=== PATIENT | male | born 1945 | race Caucasian/White ===

== ENCOUNTER → 2016-09-28 | Outpatient (CLI) | payer MEDICARE, OTHER | END | disposition home or self-care (01) | LOC: GMAL 11:48 | PROVIDERS: ATTEND Family Medicine | DX: Z12.5 Encounter for screening for malignant neoplasm of prostate (principal) ==

== ENCOUNTER → 2017-06-07 | Outpatient (CLI) | payer MEDICARE, OTHER ==
--- NOTE | 2017-06-08 08:09 | MRI ---
EXAM DESCRIPTION: MRI right knee CLINICAL HISTORY: Right knee pain COMPARISON: None. TECHNIQUE: Multiplanar, multisequence MR images of the right knee FINDINGS: Complex tear posterior horn and body medial meniscus. Horizontal cleavage tear posterior horn with blunting and fraying of the free edge. Subluxation of the body with complex tear involving both superior and inferior articular surfaces. Loss of meniscal substance and subluxation of the meniscus into the superior medial gutter. Severe medial femorotibial osteoarthritis. Full-thickness chondral loss over the anterior two thirds of the tibia with subchondral cortical irregularity and edema. Full-thickness chondral loss over the entire weightbearing femoral condyle with subchondral cortical irregularity and edema. Full-thickness chondral loss also involves a portion of the posterior nonweightbearing medial femoral condyle No lateral meniscal tear. No high-grade lateral femorotibial chondrosis or focal osteochondral lesion Trochlear chondrosis with chondral thinning and fissuring over the apex of the trochlea over about 2 x 1.4 cm. ACL, PCL, MCL and fibular collateral ligaments are intact Biceps femoris, popliteus and iliotibial band tendons are normal. Patellar and quadriceps tendons are intact. Tendons of the posterior medial knee are normal Motor joint effusion with degenerative synovitis. Large ossified body in the popliteal tendon sheath measures about 1.9 cm in greatest dimension. There is an adjacent smaller body in the popliteal tendon sheath about 0.8 cm IMPRESSION: Complex tear posterior horn and body medial meniscus Severe medial femorotibial chondrosis/osteoarthritis Electronically signed by: Charles Carson MD 06/08/2017 8:08 AM CDT
--- NOTE | 2017-06-08 08:29 | MRI ---
EXAM DESCRIPTION: MRI left knee CLINICAL HISTORY: Left knee pain COMPARISON: None. TECHNIQUE: Multiplanar, multisequence MR images of the left knee FINDINGS: Complex tear posterior horn and body medial meniscus. Intrameniscal signal throughout the posterior horn with fraying of the superior and inferior articular surfaces extending up to the tibial root. Diffuse intrameniscal signal throughout the posterior horn. Tear of the body of the meniscus involving both superior and inferior articular surfaces with subluxation into the superior medial gutter. Blunting and fraying of the meniscus. Medial femorotibial grade 4 chondrosis over the anterior half of the tibia with underlying small subchondral cysts and marrow edema joint line osteophyte. Chondral thinning and surface irregularity diffusely over the weightbearing femoral condyle, primarily grade 2 chondrosis. Grade 4 chondrosis along the posterior condyle overlying the posterior horn meniscus and the posterior nonweightbearing weightbearing condyle over about 2 x 2.5 cm with subchondral cortical irregularity, minimal cystic change and edema No lateral meniscal tear. Small region of grade 3 chondrosis over the posterior lateral tibia. No full-thickness chondrosis or subchondral marrow abnormality Mild femoral trochlear and medial trochlea chondrosis without subchondral marrow abnormality ACL, PCL, MCL and fibular collateral ligaments are intact Biceps femoris, popliteus iliotibial band tendons are normal. Patellar and quadriceps tendons and tendons of the posterior medial knee are intact. Mild central proximal patellar tendinosis Moderate suprapatellar joint effusion with synovitis. Complex multiloculated ganglion posterior medial knee subjacent to the semimembranosus tendon measuring about 4.2 x 2.9 x 1.5 cm. IMPRESSION: Complex tear of the posterior horn and body medial meniscus. Macerated body of the meniscus with subluxation of the superior medial gutter Severe medial femorotibial chondrosis. Mild apex and medial trochlear chondrosis Electronically signed by: Charles Carson MD 06/08/2017 8:28 AM CDT
== END | disposition home or self-care (01) ==
LOC: MRI 10:32
PROVIDERS: ATTEND Family Medicine
DX: M23.221 Derangement of posterior horn of medial meniscus due to old tear or injury, right knee (principal)

== ENCOUNTER → 2017-10-17 | Outpatient (CLI) | payer MEDICARE, OTHER | LOC: GMAL 11:13 | PROVIDERS: ATTEND Family Medicine | DX: D51.3 Other dietary vitamin B12 deficiency anemia (principal); E55.9 Vitamin D deficiency, unspecified; R53.83 Other fatigue; Z12.5 Encounter for screening for malignant neoplasm of prostate | CPT/HCPCS: 82306; 82607; 84443; G0103 ==

== ENCOUNTER → 2018-10-21 | Outpatient (CLI) | payer MEDICARE, OTHER | LOC: GMAL 11:01 | PROVIDERS: ATTEND Family Medicine | DX: D51.3 Other dietary vitamin B12 deficiency anemia (principal); R53.83 Other fatigue; E55.9 Vitamin D deficiency, unspecified; Z12.5 Encounter for screening for malignant neoplasm of prostate | CPT/HCPCS: 82306; 82607; 84443; G0103 ==

== ENCOUNTER → 2020-09-03 | Outpatient (CLI) | payer MEDICARE, OTHER ==
--- NOTE | 2020-09-05 11:26 | CT ---
EXAM DESCRIPTION: Soft Tissue Neck w/wo Contrast CLINICAL HISTORY: LOC SWELLING,MASS AND LUMP, UNSP COMPARISON: None. TECHNIQUE: Pre and postcontrast CT images of the neck are obtained with coronal and sagittal reconstructed images. This exam was performed according to our departmental dose-optimization program, which includes automated exposure control, adjustment of the mA and/or kV according to patient size and/or use of iterative reconstruction technique . FINDINGS: Visualized intracranial structures show severe calcifications of the intracranial carotid arteries. Visualized paranasal sinuses and mastoid air cells are unremarkable. The bilateral parotid glands are unremarkable. 2 enhancing soft tissue attenuation masses in the left submandibular region measure 2.6 x 3.0 cm and 2.6 x 4.1 cm. These lymph nodes or nodules show areas of increased attenuation on noncontrast imaging Mass effect on the left submandibular gland. Several less than 1 cm right greater than left submandibular and cervical chain lymph nodes are seen. Moderate streak artifact from patient's dental work obscures visualization of the oral pharynx and portions of the posterior pharynx. Asymmetric enlargement of the left adenoid tonsil measuring at least 2.1 x 1.7 cm compared to the right measuring 1.6 x 1.7 cm. The right tonsil contains multiple calcified concretions. Floor the mouth is unremarkable. The epiglottis and vocal cords are unremarkable. 6 mm focus of decreased attenuation in the left thyroid. No further imaging follow-up is recommended based on size of nodule and patient age. Visualized lung apices show mild centrilobular emphysematous changes. Moderate to severe disc space narrowing and degenerative changes from C4 through T1 is seen contributing to mild to moderate spinal canal stenosis and foraminal encroachment most significant at C5-6. Facet arthropathy is most significant on the left from C2 through C4. Severe calcified plaque of the carotid bulb to left greater than right internal carotid arteries. IMPRESSION: Enlarged soft tissue nodules in the left submandibular region showing mild calcifications and enhancement could represent pathologically enlarged lymph nodes. Recommend tissue sampling. Asymmetric enlargement of the left adenoid tonsil combine with enlarged left submandibular lymph nodes raises suspicion for neoplastic process. Borderline enlarged submandibular and cervical chain lymph nodes bilaterally could be reactive. Severe carotid artery disease left greater than right with findings that are suspicious for high-grade stenosis. Consider further evaluation with carotid ultrasound. Spondylitic changes of the spine are seen. Electronically signed by: Josh Hernandez MD 09/05/2020 11:25 AM [facility]
== END ==
LOC: CT 10:41
PROVIDERS: ATTEND Family Medicine
DX: M79.9 Soft tissue disorder, unspecified (principal); R59.0 Localized enlarged lymph nodes; J35.3 Hypertrophy of tonsils with hypertrophy of adenoids; I77.9 Disorder of arteries and arterioles, unspecified; M47.9 Spondylosis, unspecified

== ENCOUNTER → 2020-10-01 | Outpatient (CLI) | payer MEDICARE, OTHER | LOC: LAB.O 09:05 | PROVIDERS: ATTEND Internal Medicine | DX: C09.9 Malignant neoplasm of tonsil, unspecified (principal); D50.8 Other iron deficiency anemias; D53.9 Nutritional anemia, unspecified ==